=== PATIENT | female | born 1955 | race Caucasian/White ===

== ENCOUNTER → 2017-11-30 | Outpatient (CLI) | payer OTHER | LOC: FIMAGING 08:24 | PROVIDERS: ATTEND Internal Medicine | DX: Z12.31 Encounter for screening mammogram for malignant neoplasm of breast (principal); Z13.820 Encounter for screening for osteoporosis; M81.0 Age-related osteoporosis without current pathological fracture; Z78.0 Asymptomatic menopausal state ==

== ENCOUNTER → 2017-12-14 | Outpatient (CLI) | payer OTHER | LOC: FIMAGING 09:17 | PROVIDERS: ATTEND Internal Medicine | DX: N60.01 Solitary cyst of right breast (principal) ==

== ENCOUNTER 2018-07-16 14:48 | Inpatient (IN) | payer OTHER ==
[2018-07-16] MEDS ORDERED: ceFAZolin 2 GM/DEXTROSE 100 ML IV ONE (15:34)
[2018-07-16] MEDS ORDERED: ACETAMINOPHEN 325 MG TAB PO ONE (15:34)
[2018-07-16] MEDS ORDERED: FAMOTIDINE 20 MG TAB PO ONE (15:34)
[2018-07-16] MEDS ORDERED: DEXAMETHASONE 4 MG/ML VIAL IVP ONE (15:34)
--- NOTE | 2018-07-16 16:10 | PDGENHP ---
History and Physical - Chief Complaint Right Hip Pain - History of Present Illness Patient states she fell onto her right hip while pumping gas. It was followed by pain and inability to walk. Her friend took her to [facility] Urgent care where X- rays were taken. Urgent Care physical requested an orthopedic consult via telephone as x-rays showed a right femoral neck fracture. I had patient directly admitted to [facility]. She states her pain is currently well controlled. History Information - Allergies/Home Medication List Allergies/Adverse Reactions: Sulfa (Sulfonamide Antibiotics) Allergy (Unknown, Verified 06/07/10 15:34) Home Medications: Doxycycline 50 mg PO 06/07/10 [Last Taken Unknown] FISH OIL CONCENTRATE 06/07/10 [Last Taken Unknown] I have personally reviewed and updated: medical history Past Medical History: Osteoporosis - Past Medical History no pertinent PMH (Overall healthy individual) - Surgical History Reports: no pertinent surgical hx - Family History Positive for: non-pertinent - Social History Smoking Status: Unknown if ever smoked Alcohol Use: Occasionally Drug Use: None Review of Systems Review of Systems: ROS: 10pt was reviewed & negative except for what was stated in HPI & below Physical Exam Physical Exam: RLE (Right Hip) No bruising, open wounds, or swelling noted. 5/5 DF/PF. Mild tenderness to palpation over greater trochanter. Distal neurovasculature intact. Pain to IR/ER of hip. Temp Pulse Resp BP Pulse Ox 37.7 C 75 17 139/74 H 97 07/16/18 15:26 07/16/18 15:26 07/16/18 15:26 07/16/18 15:26 07/16/18 15:26 Assessment & Plan Assessment: Right Femoral Neck Fracture Plan: Plan for ORIF Right Femoral head/neck tonight at approx pm She is NPO currently. Currently no significant pain, and she does not want any pain meds at this time. Risks and Benefits of the surgery have been discussed with patient. Questions were answered. Consent was signed by patient. Dr. Mcclendon has reviewed case and agrees with above plan of care. Dr. Mcclendon will be attending and surgeon.
[2018-07-16 16:43] LABS: PLATELET COUNT 260 10^3/uL (150-400)
[2018-07-16] MEDS ORDERED: PROPOFOL 200 MG/20 ML VIAL ONE ×2 (17:47→17:48)
[2018-07-16] MEDS ORDERED: LIDOCAINE 2% 5 ML SDV ONE (17:47)
[2018-07-16] MEDS ORDERED: fentaNYL 250 MCG/5 ML INJ ONE (17:47)
[2018-07-16] MEDS ORDERED: POLYMYXIN B SULFATE 500,000 UNIT/10 ML SYR IRR ONE (17:47)
[2018-07-16] MEDS ORDERED: BACITRACIN 50,000 UNITS/10 ML SYR IRR ONE (17:47)
[2018-07-16] MEDS ORDERED: BUPIVACAINE/EPI 0.5% 30 ML SDV ONE (18:09)
[2018-07-16] MEDS ORDERED: ONDANSETRON 4 MG/2 ML VIAL ONE (18:19)
[2018-07-16] MEDS ORDERED: DEXAMETHASONE 4 MG/ML VIAL ONE (18:19)
[2018-07-16] MEDS ORDERED: ePHEDrine SULFATE 25 MG/5 ML SYR ONE (18:59)
[2018-07-16] MEDS ORDERED: PHENYLEPHRINE HCL 100 MCG/ML SYR ONE (18:59)
[2018-07-16] MEDS ORDERED: ONDANSETRON 4 MG/2 ML VIAL IVP PRN (19:14)
[2018-07-16] MEDS ORDERED: HYDROCODONE/APAP 5/325 TAB PO PRN (19:14)
[2018-07-16] MEDS ORDERED: PROMETHAZINE HCL 25 MG/ML INJ IVP PRN ×2 (19:14→19:23)
[2018-07-16] MEDS ORDERED: D5W 1/2 NS W/ 20 KCl/L 1,000 ML IV SCH (19:15)
--- NOTE | 2018-07-16 19:22 | PDANEPAE ---
ANE Past Medical History - Pulmonary History Hx Sleep Apnea: No Sleep Apnea Screening Result - Last Documented: Negative - Endocrine History Hx Diabetes: No - Chronic Pain History Chronic Pain: Yes ANE Review of Systems Review of Systems: ANE Patient History - Allergies Allergies/Adverse Reactions: Sulfa (Sulfonamide Antibiotics) Allergy (Unknown, Verified 06/07/10 15:34) - Home Medications Home Medications: NK [No Known Home Meds] 07/16/18 [Last Taken Unknown] - NPO status NPO Since - Liquids (Date): 07/16/18 NPO Since - Liquids (Time): 08:30 NPO Since - Solids (Date): 07/16/18 NPO Since - Solids (Time): 08:30 - Smoking Hx Smoking Status: Unknown if ever smoked - Alcohol Use Alcohol Use: Occasionally ANE Labs/Vital Signs - Labs Result Diagrams: 07/16/18 16:39 07/16/18 16:39 - Vital Signs Blood Pressure: 156/89 Heart Rate: 75 Respiratory Rate: 15 O2 Sat (%): 97 Height: 167.64 cm Weight: 45.3 kg ANE Physical Exam - Airway Neck exam: FROM Mallampati Score: Class 1 Mouth exam: normal dental/mouth exam - Pulmonary Pulmonary: no respiratory distress - Cardiovascular Cardiovascular: regular rate and rhythym - ASA Status ASA Status: I ANE Anesthesia Plan Anesthesia Plan: GA w LMA Urgent/Emergent Case: [place] rdz completed preop but documented later for safe timely pt care
[2018-07-16] MEDS ORDERED: NALOXONE HCL 0.4 MG/ML INJ IVP PRN (19:23)
[2018-07-16] MEDS ORDERED: HYDROmorphONE/DILAUDID 2 MG/ML INJ IVP PRN (19:23)
[2018-07-16] MEDS ORDERED: oxyCODONE IR 5 MG TAB PO PRN (19:23)
[2018-07-16] MEDS ORDERED: fentaNYL 100 MCG/2 ML INJ IVP PRN (19:23)
--- NOTE | 2018-07-16 19:23 | POSTANESTH ---
Post Anesthetic Evaluation Cardiovascular Status: Normal, Stable Respiratory Status: Normal, Stable Level of Consciousness/Mental Status: Can Participate in Eval Pain Control: Adequate, Prn Tx Ordered Nausea/Vomiting Control: Adequate, Prn Tx Ordered Complications Possibly Related to Anesthesia: None Noted
[2018-07-16] MEDS ORDERED: MEPERIDINE 25 MG/0.5 ML AMP IVP PRN (19:24)
[2018-07-16] MEDS ORDERED: MEPERIDINE 25 MG/0.5 ML AMP ONE (19:24)
[2018-07-16] MEDS: ASPIRIN EC 325 MG TAB PO SCH (20:51)
--- NOTE | 2018-07-16 22:08 | PDMN ---
Medical Necessity Medical necessity: Pt meets inpt criteria per MD order [place] [facility] [id number] Fract[place], Open Repair, Medicare inpt only list, 3 days. 63 y/o admitted w/R femoral neck fx after fall requiring surg intervention: underwent R ORIF femoral neck w/cannulated screw. Est LOS>2MN for management of above.
[2018-07-16] MEDS: ACETAMINOPHEN 325 MG TAB PO PRN (22:59)
--- NOTE | 2018-07-17 05:46 | GOP ---
DATE OF OPERATION: 07/16/2018 SURGEON: Beau Mcclendon MD BOOK OR SCRIPT EDITOR: Sabino Rubin PA-C. ANESTHESIA: General. PREOPERATIVE DIAGNOSIS: Right femoral neck fracture. POSTOPERATIVE DIAGNOSIS: Right femoral neck fracture. PROCEDURE PERFORMED: Cannulated screw fixation, right femoral neck fracture (open reduction, interna l fixation). FINDINGS: DESCRIPTION OF PROCEDURE: The patient was taken to the operating room and after general anesthesia, placed in supine position. The right lower extremity was positioned on the fracture table. Patient had the fracture reduced using distraction and internal rotation maneuver. The intraoperative Fluoro Scan was used to ascertain reduction in both AP and lateral planes. A skin incision was made distal to the greater trochanter. It was carried through dermal and subcuta neous tissues. Sharp dissection performed down to the IT band, which was split longitudinally. The vastus lateralis fascia was split longitudinally. This was reflected with a Lin elevator. Three guide pins were then placed up through the femoral neck, assessing their position in both AP an d lateral views on fluoroscopy. Pins were then over-drilled in the lateral cortex with a 4.5 drill. The screws were measured. They measured 70, 75, and 80 mm in length. Two of the screws utilized wa shers. These were then powered down to the last few threads and then hand-screwed into place. Irrig ation was performed. Intraoperative films showed excellent long reduction. Closure was performed with #1 Vicryl in the fascia osiris, followed by 2-0 Vicryl in subcutaneous tissu es, followed by benson in the dermis. Sterile compression was applied. The patient tolerated the procedure well and was transferred back to the recovery room in stable cond ition. No operative complications. COMPLICATIONS: None. /[id number]/MODL
--- NOTE | 2018-07-17 07:52 | SOAPPROG ---
YAHAIRA Progress Note Assessment/Plan: Assessment: POD #1 s/p ORIF Right Femoral Neck Plan: She is doing very well following surgery Continue PT/OT today. TTWB RLU with walker for assistance She appears to have good help at home If she does well with PT/OT, she may go home later today DVT prophylaxis: Mobilization, SCD, EC ASPIRIN Follow-up with Sabino Rubin PA-C at [facility] in 10-14 days. Please have patient call to confirm date/time of appointment. 07/17/18 07:49 07/17/18 07:52 Subjective: She states her pain is well controlled. Slightly sore. She is in good spirits and would like to go home today. Denies any SOB, CP, N/V currently. Objective: Vital Signs Temp Pulse Resp BP Pulse Ox 36.9 C 61 18 119/69 97 07/17/18 07:07 07/17/18 07:07 07/17/18 07:07 07/17/18 07:07 07/17/18 07:07 Laboratory Results 07/16/18 16:39 07/16/18 16:39 07/16/18 07/17/18 07/18/18 05:59 05:59 05:59 Intake Total 1920 Output Total 1350 Balance 570 PHYSICAL EXAM RLU Dressing is clean dry and intact. Full ROM of knee and ankle. Distal Neurovasculature intact. - Pending Discharge Pending Discharge Within 24 Hours: Yes Pending Discharge Date: 07/17/18 Pending Discharge Time: 03:00 ICD10 Worksheet Patient Problems: Problems Problem Status Onset Displaced fracture of right femoral neck Acute - ICD10 Problem Qualifiers (1) Displaced fracture of right femoral neck
--- NOTE | 2018-07-17 08:16 | PDDCSUM ---
Discharge Summary Discharge Summary: DISCHARGE SUMMARY Orthopedic Surgery Date of Admission: 07/16/18 Date of Discharge: 07/17/18 Primary Diagnosis: Fracture Right Femoral Neck, Displaced Primary Procedure: ORIF Right Femoral Neck HOSPITAL COURSE: Patient tolerated surgery well with no issues or complications. She was taking Oral food/water quickly after surgery. Pain was well controlled. No significant medical issues occurred during stay. PT/OT evaluated patient during stay. Dressing was checked daily with no issues of bleeding or infection. MEDICATIONS: Aspirin 325mg PO daily for DVT prophylaxis Tylenol OTC PRN for pain [place] 5/325mg tabs PRN for pain. FOLLOW-UP She will follow-up in 10-14 days at [facility] for re-evaluation and repeat radiographs. She will call our office with any questions or concerns. Sabino Rubin PA-C for Dr. Beau Mcclendon (Orthopedic Surgeon)
[2018-07-17] MEDS: ACETAMINOPHEN 325 MG TAB PO PRN ×2 (09:22→13:46)
[2018-07-17] MEDS: ASPIRIN EC 325 MG TAB PO SCH (09:22)
[2018-07-17 12:19] VITALS: BP 133/72
--- NOTE | 2018-07-17 14:11 | ASMTCMCOM ---
CM Note CM Note Notes: Pt admitted to hospital from Urgent care after a fall. She has been cleared by PT/OT for dc home, pt will have a friend come and stay until Wednesday until her comes back from [place]. CM available for any changes in discharge plan. DC Plan: Independent Date Signed: 07/17/2018 02:11 PM Electronically Signed By:Angelina Avalos RN
--- NOTE | 2018-07-17 14:15 | ASMTLACE ---
VIJAY Length of stay for Answers: 1 day current admission Acuity / Level of Answers: Yes Care: Did the patient have an inpatient admission? # of Emergency department Answers: 0 visits in the last 6 months Score: 4 Date Signed: 07/17/2018 02:14 PM Electronically Signed By:Angelina Avalos RN
== END 2018-07-17 15:42 | disposition home or self-care (01) | DRG 482 ==
LOC: F3N 15:01 → OBSVTOIN 15:36
PROVIDERS: ADMIT Orthopaedic Surgery Sports Medicine; ATTEND Orthopaedic Surgery Sports Medicine
PROC: 0QS604Z Reposition Right Upper Femur with Internal Fixation Device, Open Approach (ICD-10-PCS; principal; 2018-07-16 18:00)
DX: S72.011A Unspecified intracapsular fracture of right femur, initial encounter for closed fracture (principal); W18.39XA Other fall on same level, initial encounter; Y93.89 Activity, other specified; Y99.8 Other external cause status
CPT/HCPCS: 97110-GP; 97161-GP; 97166-GO; C1713; C1769; J0690; J1100; J2175; J2370; J2405; J2704; J3010

== ENCOUNTER → 2018-07-16 | Outpatient (CLI) | payer OTHER | LOC: BMCIMAGING 12:52 | PROVIDERS: ATTEND Family Medicine | DX: S72.001A Fracture of unspecified part of neck of right femur, initial encounter for closed fracture (principal) ==